=== PATIENT | male | born 1950 | race Caucasian/White ===

== ENCOUNTER → 2016-07-09 | Outpatient (REF) | payer MEDICARE, MEDICAID | LOC: M SFHCLACO 09:04 | PROVIDERS: ATTEND Physician Assistant | DX: E78.2 Mixed hyperlipidemia (principal); I10 Essential (primary) hypertension ==

== ENCOUNTER → 2017-01-07 | Outpatient (REF) | payer MEDICARE, MEDICAID ==
[2017-01-07 15:12] LABS: ALBUMIN 4.1 GM/DL (3.2-5.2); ALBUMIN/GLOBULIN RATIO 1.24 (1.00-1.93); BILIRUBIN,TOTAL 0.4 MG/DL (0.2-1.0); CREATININE FOR GFR 1.87 MG/DL (0.70-1.30); GLOMERULAR FILTRATION RATE 38.9 (>49); POTASSIUM SERUM 4.4 MEQ/L (3.5-5.1); TOTAL PROTEIN 7.4 GM/DL (6.4-8.2)
== END ==
LOC: M SFHCLACO 09:07
PROVIDERS: ATTEND Physician Assistant
DX: E78.2 Mixed hyperlipidemia (principal); I10 Essential (primary) hypertension

== ENCOUNTER → 2017-04-10 | Outpatient (REF) | payer MEDICARE, MEDICAID ==
[2017-04-10 15:19] LABS: ALBUMIN 4.3 GM/DL (3.2-5.2); ALBUMIN/GLOBULIN RATIO 1.23 (1.00-1.93); BILIRUBIN,TOTAL 0.3 MG/DL (0.2-1.0); CALCIUM LEVEL 9.4 MG/DL (8.8-10.2); CREATININE FOR GFR 2.16 MG/DL (0.70-1.30); GLOMERULAR FILTRATION RATE 32.8 (>49); TOTAL PROTEIN 7.8 GM/DL (6.4-8.2)
== END ==
LOC: M SFHCLACO 09:56
PROVIDERS: ATTEND Physician Assistant
DX: I10 Essential (primary) hypertension (principal); E78.2 Mixed hyperlipidemia

== ENCOUNTER → 2017-10-07 | Outpatient (REF) | payer MEDICARE, MEDICAID ==
[2017-10-07 17:12] LABS: ALBUMIN/GLOBULIN RATIO 1.14 (1.00-1.93); ALKALINE PHOSPHATASE 50 U/L (45-117); ALT/SGPT 32 U/L (12-78); ANION GAP 11 MEQ/L (8-16); AST/SGOT 20 U/L (7-37); BILIRUBIN,TOTAL 0.4 MG/DL (0.2-1.0); BLOOD UREA NITROGEN 23 MG/DL (7-18); CALCIUM LEVEL 9.5 MG/DL (8.8-10.2); CARBON DIOXIDE LEVEL 23 MEQ/L (21-32); CHLORIDE LEVEL 106 MEQ/L (98-107); CHOLESTEROL LEVEL 127 MG/DL (<200); CHOLESTEROL RISK RATIO 4.884 (<5); CREATININE FOR GFR 2.13 MG/DL (0.70-1.30); GLOMERULAR FILTRATION RATE 33.4 (>49); GLUCOSE, FASTING 69 MG/DL (70-100); HDL CHOLESTEROL 26 MG/DL (>40); LDL CHOLESTEROL 50.8 MG/DL (<100); NON-HDL-C 101 MG/DL; POTASSIUM SERUM 4.6 MEQ/L (3.5-5.1); SODIUM LEVEL 140 MEQ/L (136-145); TOTAL PROTEIN 7.5 GM/DL (6.4-8.2); TRIGLYCERIDES LEVEL 251 MG/DL (<150)
== END ==
LOC: M SFHCLACO 08:21
DX: I10 Essential (primary) hypertension (principal); E78.2 Mixed hyperlipidemia
CPT/HCPCS: 80053

== ENCOUNTER → 2020-01-24 | Outpatient (REF) | payer MEDICARE, MEDICAID ==
[2020-01-24 14:42] LABS: HEMOGLOBIN A1c 7.5 %
== END ==
LOC: M SFHCADAM 11:26
PROVIDERS: ATTEND Physician Assistant
DX: R73.9 Hyperglycemia, unspecified (principal)
CPT/HCPCS: 83036; G0463

== ENCOUNTER 2020-11-24 17:32 | Inpatient (IN) | payer MEDICARE, MEDICAID ==
[~2020-11-24] VITALS: Ht 170.2 cm; Wt 84.6 kg
[2020-11-24 18:46] LABS: BASO # 0.1 10^3/uL (0.0-0.2); EOS # 0.1 10^3/uL (0.0-0.5); HEMATOCRIT 25.3 % (42.0-52.0); LYMPH # 0.6 10^3/uL (1.5-5.0); LYMPH % 10.4 % (24.0-44.0); MEAN CORPUSCULAR HEMOGLOBIN 16.4 pg (27.0-33.0); MEAN CORPUSCULAR HGB CONC 26.5 g/dl (32.0-36.5); MEAN CORPUSCULAR VOLUME 61.9 fl (80.0-96.0); MONO # 0.7 10^3/uL (0.0-0.8); MONO % 11.7 % (2.0-8.0); NEUTROPHILS # 4.7 10^3/uL (1.5-8.5); NEUTROPHILS % 75.6 % (36.0-66.0); PLATELET COUNT, AUTOMATED 438 10^3/uL (150-450); RED BLOOD COUNT 4.09 10^6/uL (4.30-6.10); WHITE BLOOD COUNT 6.2 10^3/uL (4.0-10.0)
[2020-11-24 18:48] LABS: HEMOGLOBIN 6.7 g/dl (13.5-17.5)
[2020-11-24] MEDS ORDERED: METO10TA2 PO (18:48)
[2020-11-24] MEDS ORDERED: OMEP-221 PO (18:48)
[2020-11-24] MEDS ORDERED: TIZA2TA PO (18:48)
[2020-11-24] MEDS ORDERED: ALBU8.5H INH (18:48)
[2020-11-24] MEDS ORDERED: JANU25TA PO (18:48)
[2020-11-24] MEDS ORDERED: LISI10TA22 PO (18:48)
[2020-11-24] MEDS ORDERED: PRAV80TA2 PO (18:48)
[2020-11-24] MEDS ORDERED: LORA-674 PO (18:48)
[2020-11-24] MEDS ORDERED: TRAM50TA2 PO (18:48)
[2020-11-24] MEDS ORDERED: FURO40TA2 PO (18:48)
[2020-11-24] MEDS ORDERED: JARD1TAB PO (18:48)
[2020-11-24] MEDS ORDERED: FENO145T7 PO (18:48)
[2020-11-24] MEDS ORDERED: VENTAER INH (18:48)
[2020-11-24] MEDS ORDERED: FURO20TA2 PO (18:48)
[2020-11-24 18:57] LABS: ALBUMIN 3.2 GM/DL (3.2-5.2); BILIRUBIN,DIRECT 0.2 MG/DL (0.0-0.2); BILIRUBIN,TOTAL 0.4 MG/DL (0.2-1.0); TOTAL PROTEIN 6.6 GM/DL (6.4-8.2)
[2020-11-24] MEDS ORDERED: HOME MED LIST COMPLETE! XX SCH (19:10)
[2020-11-24 19:38] LABS: INR 1.17; PROTHROMBIN TIME 15.3 SECONDS (12.7-14.5)
[2020-11-24 20:02] LABS: PERCENT SATURATION 1.8 % (19.7-50.0)
[2020-11-24 20:12] LABS: FOLATE 6.2 NG/ML
[2020-11-24] MEDS ORDERED: MAALOX 30 ML SUSP *UDC PO PRN (20:20)
[2020-11-24] MEDS ORDERED: MOM 30ML SUSPENSION UDC PO PRN (20:20)
[2020-11-24] MEDS ORDERED: FUROSEMIDE 20MG/2ML VIAL (J1940) IV ONE (20:25)
--- NOTE | 2020-11-24 20:28 | HPEPDOC ---
[facility] Medical History & Physical Date of Admission Nov 24, 2020 Date of Service: Nov 24, 2020 History and Physical CHIEF COMPLAINT: SHORTNESS OF BREATH, FATIGUE HISTORY OF PRESENT ILLNESS: 70 yo M with a PMHx of CAD, CHF (unspecified), CKD III, DM2, restrictive lung disease, GERD, gastroparesis, HTN, H pylori infection, presented to ER after being informed by his PCP that his hemoglobin is low. He states he has felt generalized fatigue, shortness of breath, malaise and reduced exercise tolerance that has worsened over the past week. He also complains of edema in his legs. He reports ~30 lb weight loss in past 6 months. Reports dark stools yesterday, without melena or hematochezia. Denies active etoh use, although reports etoh use disorder ~20 years ago. Denies OTC NSAID use. No vomiting blood. In the ER, Hgb 6.7 (last prior is in 2010). Found to have brown stool, hemo-occult negative. MCV 61.9. Iron 11. TIBC 600. Ferritin 10. Patient was ordered [address] Shelley was consulted on admission. Patient will be admitted to hospitalist service for the management of symptomatic iron deficiency anemia possible 2/2 GIB. Patient denies chest pain, palpitations, cough, subjective fevers or chills, or focal weakness or numbness. PAST MEDICAL HISTORY: CKD III HTN CAD (per PCP notes, based on EKG findings) DM2, non insulin dependent Restrictive lung disease Nicotine dependence Former etoh use H pylori infection (Treated) Gastroparesis Low back pain SOCIAL HISTORY: daily pack per day smoker, ~40 pack year hx. states former etoh use, quit 20 years ago Denies illicit drug use FAMILY HISTORY: FATHER: 69 YRS, DIABETES MOTHER: 86 YRS, HEART DISEASE SIBLINGS: 51 YRS, ONE SISTER AT AGE 51 OF A HEART ATTACK, ANOTHER SISTER OF SEVERE DIABETES WITH BILATERAL BELOW-KNEE AMPUTATION SECONDARY TO COMPLICATIONS, ONE BROTHER OF WITH HEART DISEASE, LUNG DISEASE, AND ANTIPHOSPHOLIPID SYNDROME, ONE BROTHER OF COMPLICATIONS FROM DIABETES ALLERGIES: Please see below. REVIEW OF SYSTEMS: 10 point ROS conducted, relevant findings are noted in the HPI. HOME MEDICATIONS: Please see below. PHYSICAL EXAMINATION: VITAL SIGNS: please see below GENERAL APPEARANCE: pale appearing male. HEENT: PERRLA, EOMI. CARDIOVASCULAR: RRR, normal S1, S2. LUNGS: reduced air entry bilaterally, mild crackles at bilateral lung bases. ABDOMEN: soft, non tender non distended. MUSCULOSKELETAL: no joint deformity observed. EXTREMITIES: 2+ pitting edema bilateral lower extremities NEUROLOGICAL: no focal neuro deficits, CN2-12 intact, clear speech, no facial asymmetry PSYCHIATRIC: pleasant, cooperative. LABORATORY DATA: See below. IMAGING: pending CXR report. MICROBIOLOGY: Please see below. ASSESSMENT: 70 yo M with a PMHx of CAD, CHF (unspecified), CKD III, DM2, restrictive lung disease, GERD, gastroparesis, HTN, H pylori infection, presented with symptomatic anemia, hgb 6.7, as well as bilateral pitting edema of the legs. Suspect dyspnea multifactorial given hx of COPD, and likely mild congestive heart failure decompensation. patient admitted for management of symptomatic iron deficiency anemia, with GI consultation. Patient ordered 2 units pRBC on admission, with administration of IV lasix concurrently. . PLAN: #Symptomatic iron deficiency anemia - Hgb 6.7. Prior labs in 2010. - reports dark stools, no hematochezia, hematemesis - mildly tachycardic at 104, SOB - 30 lb weight loss in 6 months - iron panel c/w iron deficiency - 2 units pRBC ordered - start PPI IV - Venofer 250 mg x 2 doses ordered - GI Dr. Shelley consulted - clear liquid diet #Bilateral LE edema/decompensated CHF unspecified - no prior echo available - check BNP - ordered 20 mg IV lasix with blood transfusion - will give IV lasix prn - daily weights, monitor UOP #DM2, NIDDM - hold oral meds - ISS, FSBS AC and HS - hypoglycemic precautions #Gastroparesis - resume home metoclopromide #Hx CAD - per PCP notes, based on old EKG - takes pravastatin, not on ASA - at this time given RUPERT, possible GIB, will not start ASA CKD III - Cr 2.0 - appears to be at baseline - follows with harvest contractor Dr. Chaudhry\ #low back pain - c/w home pain regiment DVT ppx: TEDs. SCDs. Avoid chemoppx in setting of anemia. Vital Signs Vital Signs Date Time Temp Pulse Resp B/P (MAP) Pulse Ox O2 Delivery O2 Flow Rate FiO2 11/24/20 18:47 104 96 11/24/20 18:45 17 116/70 (85) Room Air 11/24/20 17:34 97.6 Laboratory Data Labs 24H Laboratory Tests 2 11/24/20 17:45: Immature Granulocyte % (Auto) 0.3, Neutrophils (%) (Auto) 75.6H, Lymphocytes (%) (Auto) 10.4L, Monocytes (%) (Auto) 11.7H, Eosinophils (%) (Auto) 1.0, Basophils (%) (Auto) 1.0, Neutrophils # (Auto) 4.7, Lymphocytes # (Auto) 0.6L, Monocytes # (Auto) 0.7, Eosinophils # (Auto) 0.1, Basophils # (Auto) 0.1, Nucleated Red Blood Cells % (auto) 0.3H, Iron Level 11L, Total Iron Binding Capacity 600H, T ransferrin % Saturation 1.8L, Ferritin 10L, Total Bilirubin 0.4, Direct Bilirubin 0.2, Aspartate Amino Transf (AST/SGOT) 47H, Alanine Aminotransferase (ALT/SGPT) 32, Alkaline Phosphatase 28L, Total Protein 6.6, Albumin 3.2, Albumin/Globulin Ratio 0.9, Lipase 193, Vitamin B12 Level 480, Folate 6.2 11/24/20 18:37: POC Glucose (Misc Panel) 103, POC Sodium (Misc Panel) 139, POC Potassium (Misc Panel) 4.1, POC Chloride (Misc Panel) 101, POC Total CO2 (Misc Panel) 24.0, POC Blood Urea Nitrogen (Misc Panel 32H, POC Ionized Calcium (Misc Panel) 5.0, POC Creatinine (Misc Panel) 2.0H, POC Hematocrit (Misc Panel) 26.0L 11/24/20 19:08: Prothrombin Time 15.3H, Prothromb Time International Ratio 1.17 11/24/20 19:58: CBC/BMP Laboratory Tests 11/24/20 17:45 Home Medications Scheduled Albuterol Sulfate (Albuterol Sulfate Hfa) 8.5 Gm Hfa.aer.ad, 2 PUFFS INH QAM Empagliflozin (Jardiance) 10 Mg Tablet, 10 MG PO DAILY Fenofibrate Nanocrystallized (Fenofibrate) 145 Mg Tablet, 145 MG PO DAILY Furosemide (Furosemide) 40 Mg Tablet, 40 MG PO DAILY Lisinopril (Lisinopril) 10 Mg Tablet, 10 MG PO DAILY Loratadine (Loratadine) 10 Mg Tablet, 10 MG PO DAILY Metoclopramide HCl (Metoclopramide HCl) 10 Mg Tablet, 10 MG PO ACHS Omeprazole (Omeprazole) 40 Mg Capsule.dr, 40 MG PO DAILY Pravastatin Sodium (Pravastatin Sodium) 80 Mg Tablet, 80 MG PO DAILY Scheduled PRN Albuterol Sulfate (Ventolin Hfa) 18 Gm Hfa.aer.ad, 2 PUFFS INH Q4H PRN for SHORTNESS OF BREATH Tizanidine HCl (Tizanidine HCl) 2 Mg Tablet, 2 MG PO TID PRN for MUSCLE SPASMS Tramadol HCl (Tramadol HCl) 50 Mg Tablet, 50 MG PO TID PRN for PAIN Allergies Coded Allergies: ibuprofen (Verified Allergy, Mild, RASH, 11/24/20) CECELIA EAGLE MD Nov 24, 2020 20:28
[2020-11-24] MEDS ORDERED: traMADol 50 MG TAB PO PRN (20:30)
[2020-11-24] MEDS ORDERED: ALBUTEROL 90 MCG/ACT 8GM HFA INHALER INH PRN (20:30)
[2020-11-24 20:35] VITALS: BP 119/62
--- NOTE | 2020-11-24 20:38 | REPVR ---
PROCEDURE INFORMATION: Exam: XR Chest Exam date and time: 11/24/2020 7:59 PM Age: 70 years old Clinical indication: Other: SOB TECHNIQUE: Imaging protocol: XR of the chest. Views: 1 view. COMPARISON: No relevant prior studies available. FINDINGS: Lungs: Unremarkable. No consolidation. Pleural spaces: Small left and possible right pleural effusions. Heart/Mediastinum: Unremarkable. No cardiomegaly. Bones/joints: Unremarkable. IMPRESSION: Small left and possible right pleural effusions. Electronically signed by: Boris Brewster On 11/24/2020 20:38:17 PM
[2020-11-24 20:41] LABS: RSV AMPLIFICATION NEGATIVE (NEGATIVE)
[2020-11-24 20:50] VITALS: BP 126/69
[2020-11-24 21:40] VITALS: BP 120/75
[2020-11-24 22:50] VITALS: BP 140/80
[2020-11-24] MEDS: PANTOPRAZOLE 40MG VIAL (C9113 PER 1) IV SCH (22:51)
[2020-11-24] MEDS: DOCUSATE SODIUM 100MG CAPSULE PO SCH (22:51)
[2020-11-24] MEDS: METOCLOPRAMIDE 10 MG TAB PO SCH (22:51)
[2020-11-25] VITALS (8 sets, daily range): BP systolic 124–138; BP diastolic 70–90
[2020-11-25] MEDS: ACETAMINOPHEN TAB 650MG DOSE (2X325MG) PO PRN ×2 (01:11→23:43)
[2020-11-25 06:13] LABS: BASO # 0.1 10^3/uL (0.0-0.2); EOS # 0.1 10^3/uL (0.0-0.5); EOS % 0.7 % (0.0-3.0); LYMPH # 0.6 10^3/uL (1.5-5.0); LYMPH % 9.4 % (24.0-44.0); MEAN CORPUSCULAR HEMOGLOBIN 18.5 pg (27.0-33.0); MEAN CORPUSCULAR HGB CONC 28.2 g/dl (32.0-36.5); MEAN CORPUSCULAR VOLUME 65.7 fl (80.0-96.0); MONO # 0.8 10^3/uL (0.0-0.8); MONO % 12.4 % (2.0-8.0); NEUTROPHILS # 5.1 10^3/uL (1.5-8.5); NEUTROPHILS % 76.1 % (36.0-66.0); PLATELET COUNT, AUTOMATED 401 10^3/uL (150-450); RED BLOOD COUNT 5.02 10^6/uL (4.30-6.10); WHITE BLOOD COUNT 6.7 10^3/uL (4.0-10.0)
[2020-11-25 06:15] LABS: HEMOGLOBIN 9.3 g/dl (13.5-17.5)
[2020-11-25 06:27] LABS: CALCIUM LEVEL 9.3 MG/DL (8.8-10.2); CREATININE FOR GFR 1.91 MG/DL (0.70-1.30); GLOMERULAR FILTRATION RATE 37.5 (>49); MAGNESIUM LEVEL 2.1 MG/DL (1.8-2.4)
[2020-11-25] MEDS: ALBUTEROL 90 MCG/ACT 8GM HFA INHALER INH SCH (07:03)
--- NOTE | 2020-11-25 07:03 | REPVR ---
PROCEDURE INFORMATION: Exam: US Duplex Lower Extremity Veins, Bilateral Exam date and time: 11/25/2020 5:20 AM Age: 70 years old Clinical indication: Pain; Leg, lower; Bilateral; Additional info: R/O dvt TECHNIQUE: Imaging protocol: Real-time duplex ultrasound of the extremities with 2-D avendaño scale, color Doppler flow and spectral waveform analysis with image documentation. Complete exam focused on the bilateral lower extremity veins. COMPARISON: No relevant prior studies available. FINDINGS: Right deep veins: Unremarkable. The common femoral, femoral, proximal profunda femoral and popliteal veins are patent without thrombus. Normal Doppler waveforms. Normal compressibility and/or augmentation response. Right superficial veins: Saphenofemoral junction is patent without thrombus. Left deep veins: Unremarkable. The common femoral, femoral, proximal profunda femoral and popliteal veins are patent without thrombus. Normal Doppler waveforms. Normal compressibility and/or augmentation response. Left superficial veins: Saphenofemoral junction is patent without thrombus. Soft tissues: Unremarkable. IMPRESSION: No evidence of deep vein thrombosis. Electronically signed by: Zeyad Dominguez On 11/25/2020 07:02:55 AM
--- NOTE | 2020-11-25 07:53 | ECGEPIP ---
[facility] - ED Test Date: 2020-11-24 Pat Name: SYLVIA KIDD Department: Room: [place] [address] Gender: Male Optical Laboratory Technician: ny : 1950 Requested By: Xiomara Waldrop Order Number: [id number] Reading MD: Tank Olguin Measurements Intervals [place] Rate: 106 P: 56 MT: 162 QRS: 18 QRSD: 128 T: 38 QT: 374 QTc: 496 Interpretive Statements Sinus tachycardia Nonspecific intraventricular block Minimal voltage criteria for LVH, may be normal variant ( Willie product ) NO PRIORS FOR COMPARISON Electronically Signed on 11-25-2020 7:52:59 EDT by Tank Olguin
[2020-11-25] MEDS: FENOFIBRATE 145 MG TAB (TRICOR) PO SCH (08:57)
[2020-11-25] MEDS: METOCLOPRAMIDE 10 MG TAB PO SCH ×4 (08:58→20:35)
[2020-11-25] MEDS: PRAVASTATIN 20 MG TAB PO SCH (08:58)
[2020-11-25] MEDS: DOCUSATE SODIUM 100MG CAPSULE PO SCH ×2 (08:59→21:11)
[2020-11-25] MEDS: LORATADINE 10 MG TAB PO SCH (08:59)
[2020-11-25] MEDS ORDERED: IRON SUCROSE 100MG 5ML VIAL (J1756 PER 1MG) IV SCH ×2 (09:00)
[2020-11-25] MEDS ORDERED: FUROSEMIDE 40 MG TAB PO SCH (09:00)
[2020-11-25] MEDS ORDERED: FUROSEMIDE 40MG/4ML VIAL (J1940) IV ONE ×2 (09:00→20:15)
[2020-11-25] MEDS: PANTOPRAZOLE 40MG VIAL (C9113 PER 1) IV SCH ×2 (09:00→21:11)
[2020-11-25] MEDS: IRON SUCROSE 250 MG in NS 237.5 ML IV SCH (09:01)
[2020-11-25] MEDS ORDERED: MOM 30ML SUSPENSION UDC PO ONE (12:00)
[2020-11-25] MEDS ORDERED: POLYETHYLENE GLYCOL (MIRALAX) 238GM BOTTLE PO ONE ×2 (13:00→18:00)
--- NOTE | 2020-11-25 14:11 | IPNPDOC ---
Text Note Date of Service The patient was seen on 11/25/20. NOTE Subjective: 70-year-old male who presented to the hospital with symptomatic an emia. Patient states he presented to the emergency department after his was seen by gastroenterology today who does not believe the patient is actively bleeding but believes that a colonoscopy is warranted. Patient states he is feeling otherwise well. Review of systems: General: Patient denies fevers HEENT: Patient denies headaches Cardiovascular: Patient denies chest pain Respiratory: Patient denies shortness of breath, cough GI: Patient denies abdominal pain, nausea, vomiting, diarrhea : Patient denies increased frequency or pain with urination Extremities: Patient denies swelling or pain in extremities Neurological: Patient denies numbness or tingling in legs Physical exam: Vitals: See below General: Alert and oriented male patient who was sitting up in bed with a nasal cannula oxygen in place when I walked in the room. Patient not appear to be in any acute distress. HEENT: Normocephalic, atraumatic, moist mucous membranes. Neck: No lymphadenopathy or thyromegaly Cardiac: Regular rate and rhythm, no murmurs, normal S1, normal S2 Pulm: Bibasilar crackles with scattered wheezing throughout the lung field. Abd: Nondistended, nontender to palpation, normal bowel sounds Ext: 1+ pitting edema bilateral lower extremities Labs: See below Imaging: No new imaging has been performed Assessment/plan: 70-year-old male who presented to the hospital with symptomatic anemia with a hemoglobin of 6.7 which is thought to be due to iron deficiency anemia. 1. Symptomatic iron deficiency anemia. Hemoglobin was 6.7. Patient reports one episode of black stool but no hematochezia or hematemesis. Patient is still tachycardic after receiving 2 units of blood and did appear mildly fluid overloaded today. Patient received IV Lasix today. Dr. Downs of gastroenterology saw the patient and states that an inpatient colonoscopy is warranted and the patient will have prep overnight tonight and will be taken tomorrow. Patient will receive 2 doses of interfere. 2. Bilateral lower extremity edema/decompensated congestive heart failure. No prior echo has been available. IV 40 mg Lasix given today. 3. Type 2 diabetes. Sliding scale insulin coverage. 4. Gastroparesis continue home metoclopramide. 5. History of coronary artery disease. Takes pravastatin. Aspirin will not be given due to possible GI bleed 6. Chronic kidney disease stage III. Creatinine appears to be at baseline. We will continue to follow. DVT Prophylaxis: Teds and sequentials Disposition: Pending colonoscopy tomorrow VS,Benja, I+O VS, Tariqbone, I+O Laboratory Tests 11/24/20 17:45 11/25/20 05:49 Vital Signs Date Time Temp Pulse Resp B/P (MAP) Pulse Ox O2 Delivery O2 Flow Rate FiO2 11/25/20 09:31 94 Room Air 11/25/20 08:59 128/70 11/25/20 07:53 97.6 113 18 11/25/20 04:10 1.0 I&O- Last 24 Hours up to 6 AM 11/25/20 06:00 Intake Total 1040 ml Output Total 1400 ml Balance -360 ml HELEN CHOE DO Nov 25, 2020 14:11
[2020-11-25 19:34] LABS: VENOUS BASE EXCESS 2.9 (-2.0-2.0); VENOUS HCO3 27.4 MEQ/L (23.0-27.0); VENOUS O2 SATURATION 98.9 % (60.0-80.0); VENOUS PARTIAL PRESSURE CO2 41.8 mmHg (38.0-50.0); VENOUS PARTIAL PRESSURE O2 180.7 mmHg (30.0-50.0); VENOUS PH 7.435 UNITS (7.330-7.430); VENOUS STANDARD HCO3 27.1 MEQ/L; VENOUS TOTAL CO2 28.7 MEQ/L (24.0-28.0)
[2020-11-25 19:37] LABS: HEMATOCRIT 33.9 % (42.0-52.0); HEMOGLOBIN 9.5 g/dl (13.5-17.5); MEAN CORPUSCULAR HEMOGLOBIN 18.5 pg (27.0-33.0); MEAN CORPUSCULAR VOLUME 66.1 fl (80.0-96.0); PLATELET COUNT, AUTOMATED 418 10^3/uL (150-450); RED BLOOD COUNT 5.13 10^6/uL (4.30-6.10)
[2020-11-25] MEDS: LEVALBUTEROL 1.25 MG/0.5 ML CONCENTRATE NEB INH PRN ×2 (19:42→21:55)
[2020-11-25] MEDS ORDERED: methylPREDNISolone 125MG 2ML VIAL IV ONE (19:45)
--- NOTE | 2020-11-25 19:54 | REP ---
INDICATION: sob. COMPARISON: PA and lateral chest dated 04/12/2009, portable chest of 10/24/2010 and portable chest of 11/24/2020 TECHNIQUE: Portable AP chest with the patient upright. FINDINGS: The interstitium is mildly coarsened bilaterally, similar to 11/24/2020. This could be artifact from portable technique or could represent vascular engorgement. The costophrenic angles are superimposed by ribs precluding evaluation for small bilateral pleural effusions. Cardiac size is normal. The jace, mediastinum, and skeletal structures are unremarkable. IMPRESSION: Diffuse bilateral mild interstitial coarsening, portable technique artifact versus mild vascular engorgement. Ribs superimposition of the lateral costophrenic angles plate occludes evaluation for small pleural effusions. <Electronically signed by Edgar Rodriguez > 11/25/20 1950
[2020-11-25 20:13] LABS: MB/CK RELATIVE INDEX 3.01 (< OR =4); TROPONIN I 0.03 NG/ML (< 0.10)
[2020-11-26] VITALS (7 sets, daily range): BP systolic 111–141; BP diastolic 58–82
[2020-11-26] MEDS: LEVALBUTEROL 1.25 MG/0.5 ML CONCENTRATE NEB INH PRN (01:28)
[2020-11-26] MEDS ORDERED: LIDOCAINE 2% 100MG/5ML SDV (FOR ANES.) As Ordered ONE (07:26)
[2020-11-26] MEDS ORDERED: propofoL 500 MG/50 ML VIAL As Ordered ONE (07:27)
[2020-11-26] MEDS ORDERED: fentaNYL 100 MCG/2 ML INJECTION (J3010) As Ordered ONE (07:27)
[2020-11-26] MEDS: ALBUTEROL 90 MCG/ACT 8GM HFA INHALER INH SCH (07:35)
[2020-11-26 07:47] LABS: BASO % 0.3 % (0.0-1.0); HEMATOCRIT 30.3 % (42.0-52.0); HEMOGLOBIN 8.5 g/dl (13.5-17.5); LYMPH # 0.6 10^3/uL (1.5-5.0); LYMPH % 8.4 % (24.0-44.0); MEAN CORPUSCULAR HEMOGLOBIN 18.4 pg (27.0-33.0); MEAN CORPUSCULAR HGB CONC 28.1 g/dl (32.0-36.5); MEAN CORPUSCULAR VOLUME 65.7 fl (80.0-96.0); MONO # 0.5 10^3/uL (0.0-0.8); MONO % 7.6 % (2.0-8.0); NEUTROPHILS # 5.8 10^3/uL (1.5-8.5); NEUTROPHILS % 83.1 % (36.0-66.0); PLATELET COUNT, AUTOMATED 352 10^3/uL (150-450); RED BLOOD COUNT 4.61 10^6/uL (4.30-6.10)
[2020-11-26] MEDS: METOCLOPRAMIDE 10 MG TAB PO SCH ×2 (08:08→10:42)
[2020-11-26 08:28] LABS: CALCIUM LEVEL 9.2 MG/DL (8.8-10.2); CREATININE FOR GFR 1.68 MG/DL (0.70-1.30); GLOMERULAR FILTRATION RATE 43.5 (>49); MAGNESIUM LEVEL 2.1 MG/DL (1.8-2.4); POTASSIUM SERUM 4.4 MEQ/L (3.5-5.1)
[2020-11-26] MEDS ORDERED: PHENYLephrine 500MCG 5ML (100MCG/ML) SYRINGE As Ordered ONE (09:13)
--- NOTE | 2020-11-26 09:38 | ROOR ---
Patient Name: Keo Funk Procedure Date: 11/26/2020 8:39 AM Date of : 1950 Age: 70 Room: Main OR Gender: Male Note Status: Finalized Procedure: Upper GI endoscopy Indications: Iron deficiency anemia Providers: Erwin Shelley MD Referring MD: Gerson Cartagena Do, 2. Inpatient 2. Inpatient Requesting Provider: Medicines: Monitored Anesthesia Care Complications: No immediate complications. Procedure: Pre-Anesthesia Assessment: - The heart rate, respiratory rate, oxygen saturations, blood pressure, adequacy of pulmonary ventilation, and response to care were monitored throughout the procedure. The Endoscope was introduced through the mouth, and advanced to the second part of duodenum. The upper GI endoscopy was accomplished without difficulty. The patient tolerated the procedure well. Findings: The esophagus was normal. The stomach was normal. The examined duodenum was normal. Biopsies for histology were taken with a cold forceps in the first portion of the duodenum and in the second portion of the duodenum for evaluation of celiac disease. Impression: - Normal esophagus. - Normal stomach. - Normal examined duodenum. - Biopsies were taken with a cold forceps for evaluation of celiac disease. Recommendation: - Perform a colonoscopy today. Procedure Code(s): --- Professional --- 62215, Esophagogastroduodenoscopy, flexible, transoral; with biopsy, single or multiple Diagnosis Code(s): --- Professional --- D50.9, Iron deficiency anemia, unspecified CPT copyright 2019 [employer]. All rights reserved. The codes documented in this report are preliminary and upon human resources file clerk review may be revised to meet current compliance requirements. Erwin Shelley MD Erwin Shelley MD 11/26/2020 9:37:11 AM Electronically signed by Erwin Shelley MD Number of Addenda: 0 Note Initiated On: 11/26/2020 8:39 AM Estimated Blood Loss: Estimated blood loss: none.
--- NOTE | 2020-11-26 09:44 | ROOR ---
Patient Name: Keo Funk Procedure Date: 11/26/2020 8:41 AM Date of : 1950 Age: 70 Room: Main OR Gender: Male Note Status: Finalized Procedure: Colonoscopy Indications: Iron deficiency anemia Providers: Erwin Shelley MD Referring MD: Gerson Cartagena Do, 2. Inpatient 2. Inpatient Requesting Provider: Medicines: Monitored Anesthesia Care Complications: No immediate complications. Procedure: Pre-Anesthesia Assessment: - The heart rate, respiratory rate, oxygen saturations, blood pressure, adequacy of pulmonary ventilation, and response to care were monitored throughout the procedure. The Colonoscope was introduced through the anus and advanced to 10 cm into the ileum. The colonoscopy was performed without difficulty. The patient tolerated the procedure well. The quality of the bowel preparation was good. Findings: The perianal and digital rectal examinations were normal. Mild sigmoid diverticulosis and small internal hemorrhoids. The entire examined colon appeared normal on direct and retroflexion views. Impression: - Mild sigmoid diverticulosis and small internal hemorrhoids. - The colon is otherwise normal on direct and retroflexion views. - No specimens collected. Recommendation: - Return to my office at appointment to be scheduled. Procedure Code(s): --- Professional --- 86230, Colonoscopy, flexible; diagnostic, including collection of specimen(s) by brushing or washing, when performed (separate procedure) Diagnosis Code(s): --- Professional --- D50.9, Iron deficiency anemia, unspecified CPT copyright 2019 [employer]. All rights reserved. The codes documented in this report are preliminary and upon molding cutter review may be revised to meet current compliance requirements. Erwin Shelley MD Erwin Shelley MD 11/26/2020 9:44:19 AM Electronically signed by Erwin Shelley MD Number of Addenda: 0 Note Initiated On: 11/26/2020 8:41 AM Estimated Blood Loss: Estimated blood loss: none.
[2020-11-26] MEDS ORDERED: ONDANSETRON 4MG/2ML VIAL IV PRN (09:55)
[2020-11-26] MEDS ORDERED: LR 1,000 ML IV SCH (09:55)
[2020-11-26] MEDS: DOCUSATE SODIUM 100MG CAPSULE PO SCH (10:41)
[2020-11-26] MEDS: FENOFIBRATE 145 MG TAB (TRICOR) PO SCH (10:41)
[2020-11-26] MEDS: PRAVASTATIN 20 MG TAB PO SCH (10:42)
[2020-11-26] MEDS: LORATADINE 10 MG TAB PO SCH (10:42)
[2020-11-26] MEDS: PANTOPRAZOLE 40MG VIAL (C9113 PER 1) IV SCH (10:42)
[2020-11-26] MEDS: IRON SUCROSE 250 MG in NS 237.5 ML IV SCH (10:58)
[2020-11-26] MEDS ORDERED: PRED20TA PO (11:35)
[2020-11-26] MEDS ORDERED: FERR325T3 PO (11:35)
[2020-11-26] MEDS ORDERED: predniSONE 20 MG TAB PO ONE (12:00)
--- NOTE | 2020-11-26 13:12 | ECGEPIP ---
[facility] Test Date: 2020-11-25 Pat Name: SYLVIA KIDD Department: Room: [place] [address] Gender: Male Entertainment & Media Correspondent: RESP : 1950 Requested By: ELAINE Farmer Order Number: [id number] Reading MD: Dominique Mascorro Measurements Intervals [place] Rate: 117 P: 18 MT: 134 QRS: 49 QRSD: 118 T: 21 QT: 344 QTc: 479 Interpretive Statements Sinus tachycardia with occasional premature ventricular complexes Cannot rule out Inferior infarct , age undetermined LOW VOLTAGE LIMB LEADS STTWABN ECTOPY NEW C/W 11/24/20 Electronically Signed on 11-26-2020 13:11:47 EDT by Dominique Mascorro
--- NOTE | 2020-11-26 17:11 | DS.PDOC ---
Discharge Summary General Date of Admission Nov 24, 2020 at 21:42 Date of Discharge 11/26/2020 Primary Care Physician: Humaira Rockwell PA-C, LAC Attending Physician: HELEN CHOE DO Specialist/Consultants Involve: LIMA SHELLEY MD Discharge Summary PROCEDURES PERFORMED DURING STAY: Colonoscopy and upper endoscopy. ADMITTING DIAGNOSES: 1. Symptomatic iron deficiency anemia. 2. Bilateral lower extremity edema/decompensated CHF unspecified 3. Type 2 diabetes 4. Gastroparesis 5. History of coronary artery disease 6. Chronic kidney disease stage III 7. Low back pain DISCHARGE DIAGNOSES: 1. Symptomatic iron deficiency anemia, improved. 2. Bilateral lower extremity edema/decompensated CHF, improved 3. COPD exacerbation, improved 4. Diabetes mellitus 5. Sinus tachycardia 6. Gastroparesis 7. History of coronary artery disease 8. Chronic kidney disease stage II 9. Low back pain COMPLICATIONS/CHIEF COMPLAINT: Iron Deficiency Anemia, Symptomatic Anemia. HISTORY OF PRESENT ILLNESS: Patient is a 70-year-old male who presents to the emergency department after his PCP informed him that his hemoglobin was low. Patient states he has been having generalized fatigue, shortness of breath, malaise and reduced exercise tolerance that is worse over the past week. Patient also complains of edema in his legs. Patient reports about a 30 pound weight loss in the past 6 months. Patient had dark stools the day prior to admission however, this is resolved. Patient denies any active alcohol use but did drink heavily in the past. Patient denies NSAID use. No vomiting blood. Patient was found to have brown Hemoccult negative stool in the emergency department. Patient was admitted for treatment of iron deficiency anemia HOSPITAL COURSE: Patient received 2 units of blood as well as 2 doses of IV iron. Dr. Shelley was consulted and saw the patient. Patient had a colonoscopy and upper endoscopy inpatient which did not show any evidence of bleeding or any masses. Biopsies were taken to rule out celiac disease as a cause of the patient's iron deficiency anemia. Patient did have an episode of shortness of breath overnight. Patient states that he has been having episodes where he becomes short of breath at home. Patient does take albuterol which he takes every 4 hours. Patient was given a dose of IV Solu-Medrol and was feeling much better this morning. Patient was able to go down for his colonoscopy and upper endoscopy without any difficulty. Patient was not on oxygen when I saw the patient. Patient was tachycardic however, in reviewing the patient's outpatient visit notes for the past year or so, it appears that the patient's heart rate is always from 105-116. Patient was feeling better and was deemed ready for discharge. Patient was discharged home on 11/26/2020. Patient was given a 4-day course of prednisone as he received 40 mg before leaving. DISCHARGE MEDICATIONS: Please see below. ALLERGIES: Please see below. PHYSICAL EXAMINATION ON DISCHARGE: VITAL SIGNS: Please see below. General: Alert and oriented male patient who was sitting up in bed when I walked in the room. Patient not appear to be in any acute distress. HEENT: Normocephalic, atraumatic, moist mucous membranes. Neck: No lymphadenopathy or thyromegaly Cardiac: Regular rate and rhythm, no murmurs, normal S1, normal S2 Pulm: Scattered wheezing heard throughout the lung rosenberg Abd: Nondistended, nontender to palpation, normal bowel sounds Ext: No edema bilateral lower extremities LABORATORY DATA: Please see below. IMAGING: Chest x-ray performed on 11/24/2020 was reported to show small left and possible right pleural effusions. Duplex ultrasound of the lower extremities bilaterally performed on 11/25/2020 is reported to show no evidence of DVT. Chest x-ray performed on 11/25/2020 was reported to show diffuse bilateral mild interstitial coarsening, portable technique artifact versus mild vascular engorgement. Ribs superimposition of the lateral costophrenic angles plate occlude evaluation for small pleural effusions. PROGNOSIS: Fair ACTIVITY: As tolerated. DIET: Consistent carbohydrate DISCHARGE PLAN: Discharge home DISPOSITION: 01 Home, Self-Care. DISCHARGE INSTRUCTIONS: 1. Follow-up with your primary care within 3 to 5 days of discharge. 2. Continue with prednisone 40 mg for the next 4 days 3. Start taking ferrous sulfate every other day 4. Follow-up with gastroenterology 5. Return to the emergency department if symptoms worsen ITEMS TO FOLLOWUP ON ON OUTPATIENT: 1. Monitor CBC for response for iron deficiency anemia. DISCHARGE CONDITION: Stable. TIME SPENT ON DISCHARGE: 35 minutes. Vital Signs/I&Os Vital Signs Date Time Temp Pulse Resp B/P (MAP) Pulse Ox O2 Delivery O2 Flow Rate FiO2 11/26/20 12:05 97.6 109 26 126/82 (97) 93 Room Air 11/26/20 09:49 2.0 I&O- Last 24 Hours up to 6 AM 11/26/20 06:00 Intake Total 3158 ml Output Total 2275 ml Balance 883 ml Laboratory Data Labs 24H Laboratory Tests 2 11/25/20 19:26: Blood Gas Bicarbonate Standard 27.1, Venous Blood pH 7.435H, Venous Blood Partial Pressure CO2 41.8, Venous Blood Partial Pressure O2 180.7H, Venous Blood Total Carbon Dioxide 28.7H, Venous Blood HCO3 27.4H, Venous Blood Oxygen Saturation 98.9H, Venous Blood Base Excess 2.9H, Total Creatine Kinase 166, Crea kimberly Kinase MB 5.0H, Creatine Kinase MB Relative Index 3.01, Troponin I 0.03 11/25/20 19:27: Nucleated Red Blood Cells % (auto) 0.4H 11/25/20 23:20: Troponin I 0.04# 11/26/20 06:45: Nucleated Red Blood Cells % (auto) 0.4H, Immature Granulocyte % (Auto) 0.6, Neutrophils (%) (Auto) 83.1H, Lymphocytes (%) (Auto) 8.4L, Monocytes (%) (Auto) 7.6, Eosinophils (%) (Auto) 0.0, Basophils (%) (Auto) 0.3, Neutrophils # (Auto) 5.8, Lymphocytes # (Auto) 0.6L, Monocytes # (Auto) 0.5, Eosinophils # (Auto) 0.0, Basophils # (Auto) 0.0, Anion Gap 7L, Glomerular Filtration Rate 43.5L, Calcium Level 9.2, Magnesium Level 2.1 CBC/BMP Laboratory Tests 11/25/20 19:27 11/26/20 06:45 Discharge Medications Scheduled Albuterol Sulfate (Albuterol Sulfate Hfa) 8.5 Gm Hfa.aer.ad, 2 PUFFS INH QAM, (Reported) Empagliflozin (Jardiance) 10 Mg Tablet, 10 MG PO DAILY, (Reported) Fenofibrate Nanocrystallized (Fenofibrate) 145 Mg Tablet, 145 MG PO DAILY, (Reported) Ferrous Sulfate (Ferrous Sulfate) 325 Mg Tablet.dr, 1 TAB PO Q48H Furosemide (Furosemide) 40 Mg Tablet, 40 MG PO DAILY, (Reported) Lisinopril (Lisinopril) 10 Mg Tablet, 10 MG PO DAILY, (Reported) Loratadine (Loratadine) 10 Mg Tablet, 10 MG PO DAILY, (Reported) Metoclopramide HCl (Metoclopramide HCl) 10 Mg Tablet, 10 MG PO ACHS, (Reported) Omeprazole (Omeprazole) 40 Mg Capsule.dr, 40 MG PO DAILY, (Reported) Pravastatin Sodium (Pravastatin Sodium) 80 Mg Tablet, 80 MG PO DAILY, (Reported) Prednisone (Prednisone) 20 Mg Tablet, 2 TAB PO DAILY Scheduled PRN Albuterol Sulfate (Ventolin Hfa) 18 Gm Hfa.aer.ad, 2 PUFFS INH Q4H PRN for SHORTNESS OF BREATH, (Reported) Tizanidine HCl (Tizanidine HCl) 2 Mg Tablet, 2 MG PO TID PRN for MUSCLE SPASMS, (Reported) Tramadol HCl (Tramadol HCl) 50 Mg Tablet, 50 MG PO TID PRN for PAIN, (Reported) Allergies Coded Allergies: ibuprofen (Verified Allergy, Mild, RASH, 11/24/20) HELEN CHOE DO Nov 26, 2020 17:11
== END 2020-11-26 13:22 | disposition home or self-care (01) | DRG 812 ==
LOC: M ED 19:53 → M PCU 21:42 → M MSPAV 11-25 14:17
PROVIDERS: ADMIT Family Medicine; ATTEND Family Medicine
PROC: 30233N1 Transfusion of Nonautologous Red Blood Cells into Peripheral Vein, Percutaneous Approach (ICD-10-PCS; 2020-11-24)
PROC: 0DJ08ZZ Inspection of Upper Intestinal Tract, Via Natural or Artificial Opening Endoscopic (ICD-10-PCS; 2020-11-26)
PROC: 0DB98ZX Excision of Duodenum, Via Natural or Artificial Opening Endoscopic, Diagnostic (ICD-10-PCS; principal; 2020-11-26 08:30)
DX: D50.9 Iron deficiency anemia, unspecified (principal); J44.1 Chronic obstructive pulmonary disease with (acute) exacerbation; I13.0 Hypertensive heart and chronic kidney disease with heart failure and stage 1 through stage 4 chronic kidney disease, or unspecified chronic kidney disease; E11.43 Type 2 diabetes mellitus with diabetic autonomic (poly)neuropathy; N18.30 Chronic kidney disease, stage 3 unspecified; I25.10 Atherosclerotic heart disease of native coronary artery without angina pectoris; K57.30 Diverticulosis of large intestine without perforation or abscess without bleeding; K64.8 Other hemorrhoids; Z79.899 Other long term (current) drug therapy; Z88.6 Allergy status to analgesic agent; F17.200 Nicotine dependence, unspecified, uncomplicated